=== PATIENT | male | born 1955 | race Caucasian/White ===

== ENCOUNTER 2022-01-16 12:04 | Emergency (ER) | payer OTHER, MEDICARE ==
[2022-01-16] MEDS ORDERED: Ketorolac 60 MG/2 ML SDV IM ONE (13:36)
[2022-01-16] MEDS ORDERED: Acetaminophen/oxyCODONE 325-5 MG Tab PO ONE (13:37)
== END 2022-01-16 14:30 | disposition home or self-care (01) ==
LOC: MW.ED 12:04
DX: S42.201A Unspecified fracture of upper end of right humerus, initial encounter for closed fracture (principal); S29.9XXA Unspecified injury of thorax, initial encounter; I10 Essential (primary) hypertension; Z79.899 Other long term (current) drug therapy; Z88.5 Allergy status to narcotic agent; W10.9XXA Fall (on) (from) unspecified stairs and steps, initial encounter
CPT/HCPCS: 29125; 71101; 73030; 96372; 99283; A9270; J1885